=== PATIENT | male | born 1985 | race Hispanic/Latino ===

== ENCOUNTER 2018-05-13 22:12 | Emergency (ER) | payer MEDICAID ==
[2018-05-13 22:15] VITALS: BMI 21.5
[2018-05-13 22:19] VITALS: TEMP 98.9
--- NOTE | 2018-05-13 22:31 | ED PDOC ---
Arrival/HPI - General Chief Complaint: Substance Abuse Time Seen by Provider: 05/13/18 22:17 Historian: Patient, EMS - History of Present Illness Narrative History of Present Illness (Text): 05/13/18 22:30 Carter Agrawal is a 33 year old male, whose past medical history includes IV drug use, who presents to the emergency department brought in by EMS/[facility] for substance abuse. Patient states mother called EMS after patient used heroin tonight and patient was brought to the ER for further evaluation. Patient admits to doing heroin tonight and states he has been feeling stressed tonight following the of his aunt earlier today. On arrival, patient is uncooperative, yelling at staff, exhibiting aggressive behavior. Patient denies any suicidal ideation, homicidal ideation, chest pain, abdominal pain, or any other complaints. Symptom Onset: Gradual Symptom Course: Unchanged Activities at Onset: Light Context: Home Past Medical History - Provider Review Nursing Documentation Reviewed: Yes - Infectious Disease Hx of Infectious Diseases: None - Tetanus Immunization Tetanus Immunization: Unknown - Past Medical History Past Medical History: No Previous - Psychiatric Hx Depression: No Hx Emotional Abuse: No Hx Physical Abuse: No Hx Substance Use: Yes (heroin and cocaine) Other/Comment: substance abuse - Past Surgical History Past Surgical History: No Previous - Suicidal Assessment Feels Threatened In Home Enviroment: No Family/Social History - Physician Review Nursing Documentation Reviewed: Yes Family/Social History: Unknown Family HX Smoking Status: Smoker Currrent Status Unknown Hx Alcohol Use: Yes (socially) Hx Substance Use: Yes (heroin and cocaine) Hx Substance Use Treatment: No Allergies/Home Meds Allergies/Adverse Reactions: Allergies methylphenidate HCl [From Ritalin] Allergy (Verified 07/24/16 18:01) RASH Home Medications: Home Meds Medication Instructions Recorded Confirmed No Known Home Med 05/19/12 05/13/18 Review of Systems - Physician Review All systems were reviewed & negative as marked: Yes - Review of Systems Constitutional: Normal. absent: Fevers Eyes: Normal ENT: Normal Respiratory: Normal. absent: SOB, Cough Cardiovascular: Normal. absent: Chest Pain Gastrointestinal: Normal. absent: Abdominal Pain, Diarrhea, Nausea, Vomiting Genitourinary Male: Normal. absent: Dysuria, Frequency, Hematuria, Urinary Output Changes Musculoskeletal: Normal. absent: Back Pain, Neck Pain Skin: Normal. absent: Other Neurological: Normal. absent: Headache, Dizziness Endocrine: Normal Hemo/Lymphatic: Normal Psychiatric: Other (+substance abuse) Physical Exam Vital Signs Reviewed: Yes Vital Signs Temp Pulse Resp BP Pulse Ox 05/14/18 00:45 90 17 120/70 98 05/13/18 22:18 98.9 F 94 H 18 110/72 99 Temperature: Afebrile Blood Pressure: Normal Pulse: Regular Respiratory Rate: Normal Appearance: Positive for: Well-Appearing Pain Distress: None Mental Status: Positive for: Agitated - Systems Exam Head: Present: Atraumatic, Normocephalic Pupils: Present: PERRL Extroacular Muscles: Present: EOMI Conjunctiva: Present: Normal Mouth: Present: Moist Mucous Membranes Neck: Present: Normal Range of Motion Respiratory/Chest: Present: Clear to Auscultation, Good Air Exchange. No: Respiratory Distress, Accessory Muscle Use Cardiovascular: Present: Regular Rate and Rhythm, Normal S1, S2. No: Murmurs Abdomen: No: Tenderness, Distention, Peritoneal Signs Back: Present: Normal Inspection Upper Extremity: Present: Normal Inspection. No: Cyanosis, Edema Lower Extremity: Present: Normal Inspection. No: Edema Neurological: Present: GCS=15, CN II-XII Intact, Speech Normal Skin: Present: Warm, Dry, Normal Color. No: Rashes Psychiatric: Present: Alert, Agitated Medical Decision Making ED Course and Treatment: 05/13/18 22:25 Impression: 33 year old male brought in for substance abuse tonight. Plan: -- EKG -- CXR -- Labs, alcohol level -- Urinalysis, urine drug screen -- Reassess and disposition Prior Visits: Notes and results from previous visits were reviewed. Progress Notes: 05/13/18 22:30 Pt agitated, exhibiting increasingly aggressive behavior, yelling at staff. Code Alejandra called. Pt placed in 4 point restraints and sedated. 05/13/18 23:00 Pt refusing any EKG or Chest X-ray. 05/14/18 00:39 Pt seen and evaluated by ROBERTO Jeffries, who discussed case with psychiatrist electric container tester. Pt psychiatrically cleared for discharge. Pt awake, alert , agrees with plan. - Lab Interpretations Lab Results: 05/13/18 23:39 05/13/18 23:39 Lab Results 05/13/18 23:39: Alcohol, Quantitative 189 H 05/13/18 23:39: Salicylates < 1 L, Acetaminophen < 10.0 L 05/13/18 23:39: Sodium 146, Potassium 3.6, Chloride 106, Carbon Dioxide 23, Anion Gap 20, BUN 9, Creatinine 0.9, Est GFR ( Amer) > 60, Est GFR (Non- Af Amer) > 60, Random Glucose 88, Calcium 9.0, Magnesium 2.1, Total Bilirubin 0.3, AST 38, ALT 30, Alkaline Phosphatase 100, Total Protein 7.6, Albumin 4.2, Globulin 3.5, Albumin/Globulin Ratio 1.2 05/13/18 23:39: WBC 9.6, RBC 4.51, Hgb 13.6 L, Hct 39.3 L, MCV 87.1 D, MCH 30.2 , MCHC 34.6, RDW 13.4, Plt Count 273, MPV 8.8, Gran % 59.5, Lymph % (Auto) 32.6 , [place] % (Auto) 6.7 H, Eos % (Auto) 0.9 L, Baso % (Auto) 0.3, Gran # 5.69, Lymph # (Auto) 3.1, [place] # (Auto) 0.6, Eos # (Auto) 0.1, Baso # (Auto) 0.03 05/13/18 22:57: Urine Opiates Screen Positive H, Urine Methadone Screen Negative , Ur Barbiturates Screen Negative, Ur Phencyclidine Scrn Negative, Ur Amphetamines Screen Negative, U Benzodiazepines Scrn Negative, U Oth Cocaine Metabols Positive H, U Cannabinoids Screen Positive H 05/13/18 22:57: Urine Color Yellow, Urine Appearance Clear, Urine pH 6.0, Ur Specific [place] 1.025, Urine Protein 30 H, Urine Glucose (UA) Negative, Urine Ketones Negative, Urine Blood Negative, Urine Nitrate Negative, Urine Bilirubin Negative, Urine Urobilinogen 1.0 H, Ur Leukocyte Esterase Negative, Urine RBC 0 - 2, Urine WBC 0 - 2, Ur Epithelial Cells 0 - 2, Urine Bacteria Occ - Medication Orders Current Medication Orders: Discontinued Medications Lorazepam (Ativan) 1 mg IM ONCE ONE PRN Reason: Protocol Stop: 05/13/18 22:42 Last Admin: 05/13/18 22:52 Dose: 1 mg IM Administration Charges Document 05/13/18 22:52 RD (Rec: 05/13/18 22:52 RD [id number]) Injection Site MAR Injection Site Left Gluteus Medius Charges for Administration # of IM Administrations 1 - Scribe Statement The provider has reviewed the documentation as recorded by the Scribe ngat. Disposition/Present on Arrival - Present on Arrival Any Indicators Present on Arrival: No History of DVT/PE: No History of Uncontrolled Diabetes: No Urinary Catheter: No History of Decub. Ulcer: No History Surgical Site Infection Following: None - Disposition Have Diagnosis and Disposition been Completed?: Yes Diagnosis: Substance abuse Disposition: HOME/ ROUTINE Disposition Time: 00:40 Condition: GOOD Forms: [employer] (Niuean)
[2018-05-13 23:11] LABS: URINE BILIRUBIN NEGATIVE (NEGATIVE); URINE BLOOD NEGATIVE (NEGATIVE); URINE GLUCOSE (UA) NEGATIVE (NEGATIVE); URINE LEUKOCYTE ESTERASE NEGATIVE Leu/uL (NEGATIVE); URINE PROTEIN 30 mg/dL (<30 mg/dL)
[2018-05-13 23:14] LABS: URINE APPEARANCE CLEAR (CLEAR); URINE COLOR YELLOW (YELLOW)
[2018-05-13 23:26] LABS: URINE BACTERIA OCC (NEG); URINE EPITHELIAL CELLS 0 - 2 /hpf (0-5); URINE RBC 0 - 2 /hpf (0-2); URINE WBC 0 - 2 /hpf (0-6)
[2018-05-13 23:30] LABS: BARBITURATES, UR NEGATIVE (NEGATIVE); BENZODIAZEPINES, UR NEGATIVE (NEGATIVE); OPIATES, UR POSITIVE (NEGATIVE); PHENCYCLIDINE, UR NEGATIVE (NEGATIVE)
[2018-05-14 00:01] LABS: BASO # 0.03 K/mm3 (0.0-2.0); BASO % 0.3 % (0.0-3.0); EOS # 0.1 (0.0-0.7); EOS % 0.9 % (1.5-5.0); GRAN # 5.69 (1.4-6.5); GRAN % 59.5 % (50.0-68.0); HEMOGLOBIN 13.6 g/dL (14.0-18.0); LYMPH # 3.1 (1.2-3.4); LYMPH % 32.6 % (22.0-35.0); MEAN CELL VOLUME 87.1 fl (80.0-105.0); MEAN CORPUSCULAR HEMOGLOBIN 30.2 pg (25.0-35.0); MEAN CORPUSCULAR HGB CONC 34.6 g/dl (31.0-37.0); MEAN PLATELET VOLUME 8.8 fl (7.0-11.0); MONO # 0.6 (0.1-0.6); MONO % 6.7 % (1.0-6.0); RBC 4.51 10^6/uL (3.5-6.1); RED CELL DISTRIBUTION WIDTH 13.4 % (11.5-14.5); WHITE BLOOD COUNT 9.6 10^3/ul (4.5-11.0)
[2018-05-14 00:10] LABS: ALB/GLOB RATIO 1.2 (1.1-1.8)
[2018-05-14 00:11] LABS: ALBUMIN 4.2 g/dL (3.0-4.8); ALT/SGPT 30 U/L (7-56); AST/SGOT 38 U/L (17-59); BLOOD UREA NITROGEN 9 mg/dL (7-21); GFR AFRICAN-AMERICAN > 60; GFR NON-AFRICAN AMERICAN > 60
[2018-05-14 00:12] LABS: ACETAMINOPHEN < 10.0 ug/ml (10.0-20.0); SALICYLATE < 1 mg/dL (2.0-20.0)
[2018-05-14 00:48] VITALS: BP 120/70; PULSE 90; RESP 17; O2SAT 98
== END 2018-05-14 00:45 | disposition home or self-care (01) ==
LOC: ED 22:12
DX: F19.10 Other psychoactive substance abuse, uncomplicated (principal)
CPT/HCPCS: 80053; 80320; 80324; 80329; 80345; 80346; 80349; 80353; 80358; 80361; 81001; 83735; 83992; 85025; 90791; 96372; 99285; J2060

== ENCOUNTER 2018-06-20 23:39 | Emergency (ER) | payer MEDICAID ==
[2018-06-20 23:39] VITALS: BMI 21.5
[2018-06-20 23:50] VITALS: BP 105/60; PULSE 68; RESP 18; TEMP 98.1; O2SAT 100
--- NOTE | 2018-06-21 00:10 | ED PDOC ---
Arrival/HPI <IvanYates - Last Filed: 06/21/18 05:14> <Eliud Hung - Last Filed: 06/21/18 22:02> - General Chief Complaint: Substance Abuse Time Seen by Provider: 06/20/18 23:42 - History of Present Illness Narrative History of Present Illness (Text): 06/21/18 00:06 Pt is a 33 yo M with pmhx of depression who presents today because his mother kicked him out after seeing that he was using drugs. Pt is currently not having any acute complaints and states that he was brought here because he was promised food. He is currently not having any SI or HI. He states that he is not seeking any treatment. PMHx: Depression PSHx: None Meds: Lexepro, clonipine, suboxone All: NKDA Social: 1ppd for 17 years, social drinker, Heroine and cocaine - Used 4 bags today Fam Hx: Denies PMD: Saleeb (Milan Love) Past Medical History - Infectious Disease Hx of Infectious Diseases: None - Tetanus Immunization Tetanus Immunization: Unknown - Past Medical History Past Medical History: No Previous - Cardiac Hx Cardiac Disorders: No Hx Hypertension: No - Pulmonary Hx Tuberculosis: No - Neurological HX Cerebrovascular Accident: No Hx Seizures: No - Hematological/Oncological Hx Cancer: No - Genitourinary/Gynecological Hx Sexually Transmitted Diseases: No - Psychiatric Hx Depression: No Hx Emotional Abuse: No Hx Physical Abuse: No Hx Substance Use: Yes (heroin and cocaine) Other/Comment: substance abuse - Past Surgical History Past Surgical History: No Previous - Suicidal Assessment Feels Threatened In Home Enviroment: No <Milan Love - Last Filed: 06/21/18 05:14> - Provider Review Nursing Documentation Reviewed: Yes <Eliud Hung - Last Filed: 06/21/18 22:02> Family/Social History Family/Social History: No Known Family HX Smoking Status: Heavy Smoker > 10 Cigarettes Daily Hx Alcohol Use: Yes Frequency of alcohol use: Few days per week Hx Substance Use: Yes (heroin and cocaine) Hx Substance Use Treatment: No <Milan Love - Last Filed: 06/21/18 05:14> - Physician Review Nursing Documentation Reviewed: Yes <Eliud Hung - Last Filed: 06/21/18 22:02> Allergies/Home Meds <Milan Love - Last Filed: 06/21/18 05:14> <Eliud Hung - Last Filed: 06/21/18 22:02> Allergies/Adverse Reactions: Allergies methylphenidate HCl [From Ritalin] Allergy (Verified 06/20/18 23:48) RASH Home Medications: Home Meds Medication Instructions Recorded Confirmed No Known Home Med 05/19/12 05/13/18 Review of Systems - Physician Review All systems were reviewed & negative as marked: Yes - Review of Systems Constitutional: Normal Respiratory: Normal. absent: SOB, Cough, Wheezing Cardiovascular: Normal. absent: Chest Pain, Palpitations Gastrointestinal: Normal. absent: Abdominal Pain, Diarrhea, Nausea, Vomiting <Milan Love - Last Filed: 06/21/18 05:14> Physical Exam Vital Signs Reviewed: Yes Temperature: Afebrile Blood Pressure: Normal Pulse: Regular Respiratory Rate: Normal Appearance: Positive for: Well-Appearing, Non-Toxic Pain Distress: None Mental Status: Positive for: Alert and Oriented X 3 - Systems Exam Head: Present: Atraumatic, Normocephalic Pupils: Present: PERRL Extroacular Muscles: Present: EOMI Mouth: Present: Moist Mucous Membranes Respiratory/Chest: Present: Clear to Auscultation, Good Air Exchange. No: Respiratory Distress, Accessory Muscle Use Cardiovascular: Present: Regular Rate and Rhythm, Normal S1, S2. No: Irregular Rhythm, Rub, Gallop Abdomen: Present: Normal Bowel Sounds. No: Tenderness, Distention Neurological: Present: CN II-XII Intact, Speech Normal Skin: Present: Warm, Dry, Rashes, Normal Color Psychiatric: Present: Alert, Oriented x 3, Intoxicated. No: Suicidal Ideation, Homicidal Ideation <Milan Love - Last Filed: 06/21/18 05:14> Vital Signs Temp Pulse Resp BP Pulse Ox 06/20/18 23:48 98.1 F 68 18 105/60 100 ED Course and Treatment: Pt seen and evaluated with rn medical surgical. Aware and agrees with HPI, clinical findings, plan, and management. Pt, whose past medical history includes depression, brought in by EMS after he was kicked out by his mother. (Milan Love) Disposition/Present on Arrival - Present on Arrival Any Indicators Present on Arrival: No History of DVT/PE: No History of Uncontrolled Diabetes: No Urinary Catheter: No History of Decub. Ulcer: No History Surgical Site Infection Following: None - Disposition Have Diagnosis and Disposition been Completed?: Yes Disposition Time: 00:25 <Milan Love - Last Filed: 06/21/18 05:14> <Eliud Hung - Last Filed: 06/21/18 22:02> - Disposition Diagnosis: Drug abuse Disposition: HOME/ ROUTINE Condition: GOOD Discharge Instructions (ExitCare): Drug Abuse Treatment Referrals: Brent Mccarthy MD [Primary Care Provider] - Follow up with primary Forms: [employer] (Spanish)
== END 2018-06-21 00:21 | disposition home or self-care (01) ==
LOC: ED 23:39
DX: F19.10 Other psychoactive substance abuse, uncomplicated (principal)

== ENCOUNTER 2018-09-12 18:44 | Emergency (ER) | payer MEDICAID ==
[2018-09-12 18:45] VITALS: BMI 21.5
[2018-09-12 19:32] VITALS: TEMP 98.1; O2SAT 99
--- NOTE | 2018-09-12 19:55 | ED PDOC ---
Arrival/HPI - General Chief Complaint: Substance Abuse Time Seen by Provider: 09/12/18 19:18 Historian: Patient, Police - History of Present Illness Narrative History of Present Illness (Text): 09/12/18 19:51 33 year old male, whose past medical history includes IV drug use, who presents to the emergency department brought in by EMS/[facility] for evaluation of anxiety since prior to arrival. Patient was reportedly being transported to [facility] when he started experiencing anxiety and was subsequently referred to the ED for medical evaluation. Patient states symptoms may be secondary to substance withdrawal. Patient denies any other associated somatic complaints. Patient denies any fevers, chills, headache, dizziness, chest pain, shortness of breath, abdominal pain, nausea, vomiting, diarrhea, back pain, neck pain, or any other complaints. Time/Duration: Prior to Arrival Symptom Onset: Gradual Symptom Course: Unchanged Activities at Onset: Light Context: Other (Accompanied by [employer]) Past Medical History - Provider Review Nursing Documentation Reviewed: Yes - Infectious Disease Hx of Infectious Diseases: None - Tetanus Immunization Tetanus Immunization: Unknown - Past Medical History Past Medical History: No Previous - Cardiac Hx Cardiac Disorders: No Hx Hypertension: No - Pulmonary Hx Tuberculosis: No - Neurological HX Cerebrovascular Accident: No Hx Seizures: No - Hematological/Oncological Hx Cancer: No - Genitourinary/Gynecological Hx Sexually Transmitted Diseases: No - Psychiatric Hx Depression: No Hx Emotional Abuse: No Hx Physical Abuse: No Hx Substance Use: Yes (heroin and cocaine) Other/Comment: substance abuse - Past Surgical History Past Surgical History: No Previous - Anesthesia Hx Anesthesia: No - Suicidal Assessment Feels Threatened In Home Enviroment: No Family/Social History - Physician Review Nursing Documentation Reviewed: Yes Family/Social History: Unknown Family HX Smoking Status: Heavy Smoker > 10 Cigarettes Daily Hx Alcohol Use: Yes Frequency of alcohol use: Socially Hx Substance Use: Yes (heroin and cocaine) Hx Substance Use Treatment: No Allergies/Home Meds Allergies/Adverse Reactions: Allergies methylphenidate HCl [From Ritalin] Allergy (Verified 06/20/18 23:48) RASH Home Medications: Home Meds Medication Instructions Recorded Confirmed No Known Home Med 05/19/12 05/13/18 Review of Systems - Physician Review All systems were reviewed & negative as marked: Yes - Review of Systems Constitutional: absent: Fevers Respiratory: absent: SOB, Cough Cardiovascular: absent: Chest Pain Gastrointestinal: absent: Abdominal Pain, Diarrhea, Nausea, Vomiting Genitourinary Male: absent: Dysuria, Urinary Output Changes Musculoskeletal: absent: Back Pain, Neck Pain Skin: absent: Rash Neurological: absent: Headache, Dizziness Psychiatric: Anxiety Physical Exam Vital Signs Reviewed: Yes Vital Signs Temp Pulse Resp BP Pulse Ox 09/12/18 19:05 98.1 F 64 18 129/87 99 Temperature: Afebrile Blood Pressure: Normal Pulse: Regular Respiratory Rate: Normal Appearance: Positive for: Well-Appearing, Non-Toxic, Comfortable Pain Distress: None Mental Status: Positive for: Alert and Oriented X 3 - Systems Exam Head: Present: Atraumatic, Normocephalic Pupils: Present: PERRL Extroacular Muscles: Present: EOMI Conjunctiva: Present: Normal Neck: Present: Normal Range of Motion Respiratory/Chest: Present: Clear to Auscultation, Good Air Exchange. No: Respiratory Distress, Accessory Muscle Use Cardiovascular: Present: Regular Rate and Rhythm, Normal S1, S2. No: Murmurs Abdomen: No: Tenderness, Distention, Peritoneal Signs Upper Extremity: Present: Normal Inspection. No: Cyanosis, Edema Lower Extremity: Present: Normal Inspection. No: Edema Neurological: Present: GCS=15, CN II-XII Intact, Speech Normal Skin: Present: Warm, Dry, Normal Color. No: Rashes Psychiatric: Present: Alert, Oriented x 3, Normal Insight, Normal Concentration Medical Decision Making ED Course and Treatment: 09/12/18 19:54 Impression: 33 year old male presents to the ED for evaluation of anxiety. Plan: -- Reassess and disposition Prior Visits: Notes and results from previous visits were reviewed. Progress Notes: - Scribe Statement The provider has reviewed the documentation as recorded by the Scribe Maikol Beck. All medical record entries made by the Scribe were at my direction and personally dictated by me. I have reviewed the chart and agree that the record accurately reflects my personal performance of the history, physical exam, medical decision making, and the department course for this patient. I have also personally directed, reviewed, and agree with the discharge instructions and disposition. Disposition/Present on Arrival - Present on Arrival Any Indicators Present on Arrival: No History of DVT/PE: No History of Uncontrolled Diabetes: No Urinary Catheter: No History of Decub. Ulcer: No History Surgical Site Infection Following: None - Disposition Have Diagnosis and Disposition been Completed?: Yes Diagnosis: Narcotic dependence Disposition: RELEASED IN POLICE CUSTODY Disposition Time: 21:05 Condition: STABLE Discharge Instructions (ExitCare): Drug Abuse and Drug Addiction (DC) Additional Instructions: medically cleared for incarceration Referrals: Brent Mccarthy MD [Primary Care Provider] - Follow up with primary Forms: [employer] ([place]er)
[2018-09-12 21:04] VITALS: BP 120/81; PULSE 62; RESP 17
--- NOTE | 2018-09-13 10:32 | CARD ---
APPROVED REPORT Date of service: 09/12/2018 EKG Measurement Heart [id number] <Conclusion> Sinus bradycardia Voltage criteria for left ventricular hypertrophy NSSTW changes
== END 2018-09-12 21:03 ==
LOC: ED 18:44
DX: F17.210 Nicotine dependence, cigarettes, uncomplicated (principal)